=== PATIENT | female | born 1995 | race African-American/Black ===

== ENCOUNTER 2024-01-20 21:03 | Emergency (ER) | payer OTHER ==
[2024-01-20 21:10] VITALS: BP 126/67; PULSE 72; RESP 19; TEMP 99; BMI 21.2
[2024-01-20] MEDS ORDERED: IPRATROPIUM BR 0.02% 0.5 MG/2.5 ML VIAL.NEB. NEB ONE (21:50)
[2024-01-20] MEDS: IPRATROPIUM BR 0.02% 0.5 MG/2.5 ML VIAL.NEB. NEB ONE (21:58)
[2024-01-20] MEDS: SODIUM CHLORIDE FOR INHALATION 3 ML VIAL.NEB IH ONE (21:58)
== END 2024-01-20 22:59 | disposition home or self-care (01) ==
LOC: JER 21:03 → JERFT 21:03
PROC: 3E0F7GC Introduction of Other Therapeutic Substance into Respiratory Tract, Via Natural or Artificial Opening (ICD-10-PCS; principal; 2024-01-20)
DX: O98.511 Other viral diseases complicating pregnancy, first trimester (principal); U07.1 COVID-19; O99.511 Diseases of the respiratory system complicating pregnancy, first trimester; J32.9 Chronic sinusitis, unspecified; Z3A.12 12 weeks gestation of pregnancy
CPT/HCPCS: 0241U-QW; 99283-25